=== PATIENT | female | born 1980 | race Caucasian/White ===

== ENCOUNTER 2023-12-13 13:37 | Outpatient (CLI) | payer BC, SELFPAY ==
--- NOTE | ~2023-12-13 | CT_ITS ---
Clinical Indication: Shortness of breath CT Scan of the Chest with Contrast: Technique: Contiguous sections were acquired throughout the chest after intravenous administration of 100 cc of Omnipaque 350. Dose reduction technique was used on this scan by utilizing automated expos ure control and iterative reconstruction technique. The dose-length product (DLP) was 233.50 mGy-cm. Findings: Probable enlarged subcarinal lymphadenopathy. Mildly prominent left hilar lymph nodes are present. Th ere is no filling defect in the pulmonary arterial tree to suggest pulmonary embolus. There is no treasure dence of aortic dissection or aneurysm. There is no evidence of pleural or pericardial effusion. There is patchy groundglass opacity and extensive tree-in-bud opacities, with extensive involvement o f the bilateral lower lobes and right middle lobe, and lesser involvement of the upper lobes. There i s a 4 mm right upper lobe pulmonary nodule (axial image 32). Images through the upper abdomen reveal no abnormalities. Impression: No evidence of pulmonary embolus, aortic dissection, or aortic aneurysm. Extensive groundglass and tree-in-bud pulmonary opacities, with lower lobe/basilar predominance, most compatible with atypical pneumonia and small airways infectious process. Subcarinal and hilar lymphadenopathy, presumably reactive/inflammatory. Reviewed, dictated and finalized at location M. Impression: No evidence of pulmonary embolus, aortic dissection, or aortic aneurysm. Extensive groundglass and tree-in-bud pulmonary opacities, with lower lobe/basi lar predominance, most compatible with atypical pneumonia and small airways inf ectious process. Subcarinal and hilar lymphadenopathy, presumably reactive/inflammatory.
== END 2023-12-13 13:38 ==
PROVIDERS: PCP Family Medicine; Visit Provider Family Medicine
DX: R06.02 Shortness of breath (principal); R06.2 Wheezing; R05.9 Cough, unspecified; R00.0 Tachycardia, unspecified
CPT/HCPCS: 71275; Q9967

== ENCOUNTER 2024-08-15 13:13 | Outpatient (CLI) | payer BC, SELFPAY ==
--- NOTE | ~2024-08-15 | CT_ITS ---
EXAMINATION: CT diagnostic chest wo con DATE: 08/15/2024 13:30 INDICATION: Pulmonary nodule TECHNIQUE: Computed tomography (CT) of the chest was performed without intravenous contrast. Addition al 3D reconstructions utilizing coronal maximum intensity projection (MIP) were performed. Automated exposure control and iterative reconstruction technique were employed. The dose-length product was 55 .40 mGy-cm. COMPARISON: 12/13/2023 FINDINGS: No interval change in a 4 mm right upper lobe pulmonary nodule. No new or enlarging pulmonary nodules , pneumonia, pulmonary edema or pleural effusion. Heart size is normal. No pericardial effusion. Thor acic aorta is normal in caliber. No pathologically enlarged thoracic lymphadenopathy. Visualized uppe r abdomen is unremarkable. Mild upper thoracic spondylosis. IMPRESSION: 1. Unchanged 4 mm right upper lobe pulmonary nodule. If the patient is low risk for lung cancer, no f ollow-up is needed. If the patient is high risk (i.e., history of smoking or asbestos or significant radiation exposure), optional follow-up chest CT could be considered at 12 months. Reviewed, dictated and finalized at location A. AL CRUELTY INVESTIGATOR IMPRESSION: 1. Unchanged 4 mm right upper lobe pulmonary nodule. If the patient is low risk for lung cancer, no follow-up is needed. If the patient is high risk (i.e., hi story of smoking or asbestos or significant radiation exposure), optional follo w-up chest CT could be considered at 12 months.
== END 2024-08-15 13:14 | disposition home or self-care (01) ==
PROVIDERS: PCP Family Medicine; Visit Provider Family Medicine
DX: R91.1 Solitary pulmonary nodule (principal)
CPT/HCPCS: 71250

== ENCOUNTER 2025-03-06 01:35 | Day surgery (SDC) | payer BC, SELFPAY ==
--- OUTSIDE RECORDS SUMMARY | 2023-12-21 08:00 | XMS_ITS ---
Author Organization [facility] dicine Address [address] [place] [address] Care Team Providers Care Cargo Surveyor Name Role Phone Dr. Cory Kessler Primary Care Provider [phone] Santino Melchor Unavailable [phone] REASON FOR VISIT possible cerumen impaction, balance on acct Vital Signs Temperature 97.9 degrees Fahrenheit 12/21/19 24 Blood pressure systolic 132 mm Hg 12/21/19 24 Blood pressure diastolic 68 mm Hg 024 Heart Rate 78 /min 12/21/2023 Respiratory Rate 16 /min 12/21/2023 Weight 140.06 lbs 12/21/2023 Oximetry 95 % 12/21/2023 Weight-kg 63.53 kg 12/21/2023 Encounters Encounter Location Date Provider Diagnosis [address] [address] 12/21/2023 Santino Melchor Cough, unspecified R05.9 ; Impacted cerumen, left ear H61.22 ; Unspecified injury of right foot, initial encounter S99.921A ; Other fatigue R53.83 ; Pneumonia, unspecified organism J18.9 ; Pain in right hip M25.551 ; Fever, unspecified R50.9 ; Pain in right elbow M25.521 ; Streptococcal pharyngitis J02.0 and Other specified cough R05.8 Assessments Encounter Date Diagnosis (ICD Code) Assessment Notes Treatment Notes Treatment Clinical Notes Section Notes 12/21/2023 Cough, unspecified (ICD-10 - R05.9) 12/21/2023 Impacted cerumen, left ear (ICD-10 - H61.22) 12/21/2023 Unspecified injury of right foot, initial encounter (ICD-10 - S99.921A) 12/21/2023 Other fatigue (ICD-10 - R53.83) 12/21/2023 Pneumonia, unspecified organism (ICD-10 - J18.9) 12/21/2023 Pain in right hip (ICD-10 - M25.551) 12/21/2023 Fever, unspecified (ICD-10 - R50.9) 12/21/2023 Pain in right elbow (ICD-10 - M25.521) 12/21/2023 Streptococcal pharyngitis (ICD-10 - J02.0) 12/21/2023 Other specified cough (ICD-10 - R05.8) Plan Of Treatment No Information Progress Notes * Loraine HEREDIADOB:1980 ( 44 yo F)Acc No.[id number]:12/21/2023 Patient: Loraine De Dios Provider: PATRICIA Fernandez :1980 A ge:43 Y S ex:Female Date:12/21/2023 Phone: Address:[address] [place] [address], [place], [phone] Pcp:Dr. Cory Kessler Subjective: * Chief Complaints: * P ossible cerumen impaction, balance on acct Objective: * Vitals: B P: 132/68 mm Hg, HR: 78 /min, RR: 16 /min, Temp: 97.9 F, Oxygen sat %: 95 %, Wt: 140.06 lbs, Wt-k.53 kg. Past Vitals:* 08/08/2022 BP: 134/84 mm Hg, HR: 82 /mi n, Oxygen sat %: 97 %, Wt: 153.99 lbs, Wt-k.85 kg * 03/31/2021 BP: 132/80 mm Hg, HR: 82 /mi n, Oxygen sat %: 99 %, Wt: 174.01 lbs, Wt-k.93 kg Assessment: * Assessment: 1. I mpacted cerumen, left ear - H61.22 S pecify :Src Diagnosis Name: Impacted cerumen of left ear 2 . S treptococcal pharyngitis - J02.0 S pecify :Src Diagnosis Name: Strep pharyngitis 3 . P neumonia, unspecified organism - J18.9 S pecify :Src Diagnosis Name: Pneumonia 4 . P ain in right elbow - M25.521 S pecify :Src Diagnosis Name: Right elbow pain 5 . P ain in right hip - M25.551 S pecify :Src Diagnosis Name: Right hip pain 6 . F ever, unspecified - R50.9 S pecify :Src Diagnosis Name: Fever 7 . O ther fatigue - R53.83 S pecify :Src Diagnosis Name: Fatigue 8 . U nspecified injury of right foot, initial encounter - S99.921A S pecify :Src Diagnosis Name: Right foot injury 9 . O ther specified cough - R05.8 S pecify :Src Diagnosis Name: Productive cough 1 0. C ough, unspecified - R05.9 S pecify :Src Diagnosis Name: Cough * Electronic signature of Morris Melchor on 03/06/2025 at 01:39 AM CDT Sign off status: Pending * Provider: PATRICIA Fernandez Date: 0 12/21/2023 Generated for Nikole gong/Mesfin/Elliotitting on: 0 03/06/2025 01:39 AM CDT
--- OUTSIDE RECORDS SUMMARY | 2024-05-31 04:00 | XMS_ITS ---
Author Organization [facility] dicine Address [address] [place] [address] Care Team Providers Care Program Evaluation Consultant Name Role Phone Dr. Cory Kessler Primary Care Provider [phone] Migration, Provider Unavailable Unavailable REASON FOR VISIT [facility] [place] Encounter Location Date Provider Diagnosis [facility] [address] [place] [address] 05/31/2024 Provider Migration Plan Of Treatment Medication Medication Name Sig Start Date Stop Date Notes predniSONE 20 MG Tablet 1 Oral every day ; Duration: 4 12/21/2023 12/24/2023 Cefprozil 500 MG Tablet 1 Oral two times a day; Duration: 08/09/2023 08/18/2023 Escitalopram Oxalate 20 MG Tablet 1 Oral every day; Duration: 03/06/2024 03/06/2024 Rx Refill Request,discontinuerea son:Refilled Lisinopril-hydroCHLOROth iazide 10-12.5 MG Tablet 1 Oral every day; Duration: 0 11/26/2020 03/30/2021 ,discontinuereason:D is continued Lexapro 20 MG Tablet 1 Oral every day; Duration: 03/31/2021 03/31/2021 Rx Refill Request,discontinuerea son:Refilled Cephalexin 500 MG Capsule 1 Oral two times a day; Duration: 07/25/2023 08/03/2023 Doxycycline Hyclate 100 MG Tablet 1 Oral two times a day; Duration: 11/29/2023 12/03/2023 Vitamin B-12 1000 MCG Tablet 4 Oral every day; Duration: 0 03/31/2021 08/07/2022 ,discontinuereason:D is continued Lexapro 10 MG Tablet 1 Oral every day; Duration: 11/26/2020 03/30/2021 ,discontinuereason:D is continued Avelox 400 MG Tablet 1 Oral every day; Duration: 12/13/2023 12/22/2023 *Reorder from [facility] for eRx and Interaction Alerts* Benzonatate 200 MG Capsule 1 Oral three times a day; Duration: 12/13/2023 12/22/2023 predniSONE 10 MG Tablet 3 Oral every day ; Duration: 12/13/2023 12/17/2023 Citalopram Hydrobromide 40 MG Tablet 1 Oral every day; Duration: 0 11/26/2020 11/26/2020 ,discontinuereason:D is continued Progress Notes * Loraine HEREDIADOB:1980 ( 44 yo F)Acc No.[id number]:05/31/2024 Patient: Malia Loraine BRITO :1980 A ge:43 Y S ex:Female Phone: Address:[id number] [place] [phone] * Refills Stop Benzonatate Capsule, 200 MG, Oral, 30, 1, three times a day, 10 Stop predniSONE Tablet, 10 MG, Oral, 15, 3, every day, 5 Stop Vitamin B-12 Tablet, 1000 MCG, Oral, 4, every day, 0 Stop Escitalopram Oxalate Tablet, 20 MG, Oral, 90, 1, every day, 90 Stop Escitalopram Oxalate Tablet, 20 MG, Oral, 30, 1, every day, 30 Stop Cefprozil Tablet, 500 MG, Oral, 20, 1, two times a day, 10 Stop predniSONE Tablet, 20 MG, Oral, 4, 1, every day, 4 Stop Lexapro Tablet, 20 MG, Oral, 90, 1, every day, 90 Stop Citalopram Hydrobromide Tablet, 40 MG, Oral, 1, every day, 0 Stop Lexapro Tablet, 20 MG, Oral, 90, 1, every day, 90 Stop Cephalexin Capsule, 500 MG, Oral, 20, 1, two times a day, 10 Stop Doxycycline Hyclate Tablet, 100 MG, Oral, 10, 1, two times a day, 5 Stop Escitalopram Oxalate Tablet, 20 MG, Oral, 90, 1, every day, 90 Stop Lisinopril-hydroCHLOROthiazide Tablet, 10-12.5 MG, Oral, 1, every day, 0 Stop Lexapro Tablet, 10 MG, Oral, 30, 1, every day, 30 Stop Avelox Tablet, 400 MG, Oral, 10, 1, every day, 10 Stop Escitalopram Oxalate Tablet, 20 MG, Oral, 90, 1, every day, 90 Subjective: * Chief Complaints: * E MR-Ceasar Objective: Past Vitals:* 12/21/2023 BP: 132/68 mm Hg, HR: 78 /mi n, Oxygen sat %: 95 %, Wt: 140.06 lbs, Wt-k.53 kg * 08/08/2022 BP: 134/84 mm Hg, HR: 82 /mi n, Oxygen sat %: 97 %, Wt: 153.99 lbs, Wt-k.85 kg * * Date:
--- OUTSIDE RECORDS SUMMARY | 2024-06-01 04:00 | XMS_ITS ---
Author Organization [facility] Address [address] [place] [address] Care Team Providers Care Supervisor Component Assembler Name Role Phone Dr. Cory Kessler Primary Care Provider [phone] Migration, Provider Unavailable Unavailable Allergies Allergen (clinical drug ingredient) Drug/Non Drug Allergy documented on EMR Reaction Allergy Type Onset Date Status Substance with penicillin structure and antibacterial mechanism of action (substance) Penicillins Unknown Drug Allergy 03/30/2021 Active REASON FOR VISIT EMR-Ceasar Medications Medication SIG (Take, Route, Frequency, Duration) Notes Start Date End Date Status Vitamin D3 50 MCG (1999 UT) Tablet 1 Oral every day; Duration: 0 03/31/2021 Active Benzonatate 100 MG Capsule 1 Oral three times a day; Duration: 0 11/28/2023 Active Escitalopram Oxalate 20 MG Tablet 1 Oral every day; Duration: 90 06/02/2024 2024 Active Multivitamin oral; Duration: 0 *Pick strength-form from [facility] for eRX* 03/31/2021 Active Social History Social History Additional Details Category Social Info Options Details Migrated Social History Migrated Social History Tobacco history:Former smoker ,notes : >10 Yrs ago 1/2ppd x 10-12 yrs Encounters Encounter Location Date Provider Diagnosis [facility] [address] [place] [address] 06/01/2024 Provider Migration Plan Of Treatment No Information Progress Notes * Loraine HEREDIADOB:1980 ( 44 yo F)Acc No.[id number]:06/01/2024 Patient: Malia Loraine BRITO :1980 A ge:43 Y S ex:Female Phone: Address:[address], [place], [address] Subjective: * Chief Complaints: * E MR-Ceasar * Surgical History: ([id number]) CONTRACEPT IUD ,notes : 07/2019 * Social History: M igrated Social History: M igrated Social History: Tobacco history:Former smoker ,notes : >10 Yrs ago 1/2ppd x 10-12 yrs. * Medications: T akingEscitalopram Oxalate 20 MG Tablet 1 Oral every day , stop date 2024Multivitamin oral , Notes to Pharmacist: *Pick strength-form from [employer] for eRX*Benzonatate 100 MG Capsule 1 Oral three times a day Vitamin D3 50 MCG (2000 UT) Tablet 1 Oral every day Taking Escitalopram Oxalate 20 MG Tablet 1 Oral every day , stop date 2024Taking Multivitamin oral , Notes to Pharmacist: *Pick strength-form from [employer] for eRX*Taking Benzonatate 100 MG Capsule 1 Oral three times a day Taking Vitamin D3 50 MCG (2000 UT) Tablet 1 Oral every day * Allergies: P enicillins: Allergy - Onset Date 03/30/2021 Objective: Past Vitals:* 12/21/2023 BP: 132/68 mm Hg, HR: 78 /mi n, Oxygen sat %: 95 %, Wt: 140.06 lbs, Wt-k.53 kg * 08/08/2022 BP: 134/84 mm Hg, HR: 82 /mi n, Oxygen sat %: 97 %, Wt: 153.99 lbs, Wt-k.85 kg * * Date:
[2025-02-27 10:39] VITALS: BMI 24.7
--- OUTSIDE RECORDS SUMMARY | 2025-03-06 01:39 | XMS_ITS | Clinical Summary ---
Author Organization [facility] Address [address] [place] [address] Care Team Providers Care Fraud Prevention Analyst Name Role Phone Aura Garcia MD Primary Care Provider Allergies Active Allergy Reactions Criticality Noted Date Comments Penicillins Rash Medium 08/09/2011 As baby Medications escitalopram (LEXAPRO) 20 mg tablet 02/16/2021 Active Active Problems Problem Noted Date Diagnosed Date Anxiety disorder 08/09/2011 Hyperlipidemia 08/09/2011 Medical History Medical History Date Comments Anxiety Hypercholesteremia Hypertension Family History Medical History Relation Name Comments Heart disease Father Hypertension Father Arthritis Mother Cancer Mother Heart disease Mother Hypertension Mother Lung disease Mother Stroke Mother Relation Name Status Comments Father Mother Social History Tobacco Use Types Packs/Day Years Used Date Smoking Tobacco: Never Personal Safety Answer Date Recorded Getting School Help Needed Not on file 08/30 Comments Unknown Sex and Gender Information Value Date Recorded Sex Assigned at Not on file Legal Sex Female 1:18 PM CDT Gender Identity Not on file Sexual Orientation Not on file Obstetrics History Last Filed Vital Signs Vital Sign Reading Time Taken Comments Blood Pressure - - Pulse - - Temperature - - Respiratory Rate - - Oxygen Saturation - - Inhaled Oxygen Concentration - - Weight 66.7 kg (147 lb) 02/24/2022 11:52 AM CDT Height 170.2 cm (5' 7) 02/24/2022 11:52 AM CDT Body Mass Index 23.02 02/24/2022 11:52 AM CDT Plan of Treatment Health Maintenance Due Date Last Done Comments Breast Cancer Screening-Mammogram 1980 Cervical Cancer Screening 1980 Colon Cancer Screening-Colonoscopy 1980 Depression Screening 1978 Hepatitis C Screening 1978 DTaP/Tdap/Td Vaccine (1 - Tdap) 1989 Hepatitis B Screening 1996 Regular Well Visit/Exam 18-64 1996 Covid-19 Vaccine ( season) 2024 09/10/2020, 08/13/2020 Influenza Vaccine (#1) 2025 , 04/08/2019, 03/25/2018, Additional history exists HPV Vaccines Aged Out No longer eligi ble based on patient's age to complete this topic Pneumococcal vaccine <65 Aged Out No longer eligible based on patient's age to complete this topic [place] Care Teams Fraud Prevention Analyst Relationship Specialty Start Date End Date Aura Garcia MD [address] [place], [place] [id number] PCP - General Family Medicine 07/12/20
--- OUTSIDE RECORDS SUMMARY | 2025-03-06 01:39 | XMS_ITS | Encounter Summary ---
Author Organization [facility] Address Pending sale to [facility] [place] [address] Care Team Providers Care Terrazzo Grinder Name Role Phone Cory Kessler MD Primary Care Provider + [phone] Encounter Details Date Type Department Care Team (Late st Contact Info) Description 05/22/2024 Polyvore Message Enc [facility] ACTION REQUIRED Social History Tobacco Use Types Packs/Day Years Used Date Smoking Tobacco: Never Smokeless Tobacco: Never Alcohol Use Standard Drinks/Week Comments Yes 0 (1 standard drink = 0.6 oz pur e alcohol) occasionally AUDIT-C Answer Date Recorded Frequency of Alcohol Consumption Never 04/19/2019 Average Number of Drinks Not on file 019 Frequency of Binge Drinking Not on file 04/01 PHQ-2 Answer Date Recorded PHQ-2 Score - If the patient scores above 3, please move on to questions 3-9 0 04/27/2021 Comments No Sex and Gender Information Value Date Recorded Sex Assigned at Female 04/27/2021 8:38 AM CDT Legal Sex Female 8:25 PM CDT Gender Identity Female 04/27/2021 8:38 AM CDT Sexual Orientation Straight 04/27/2021 8: 38 AM CDT documented as of this encounter Plan of Treatment Not on file documented as of this encounter Visit Diagnoses Not on filedocumented in this encounter Additional Health Concerns Assessment Noted Time PHQ-9 Depression Total Score: 0 04/27/20 21 8:38 AM CDT documented as of this encounter Care Teams Terrazzo Grinder Relationship Specialty Start Date End Date Cory Kessler MD [address] [place] [address] PCP - General PEDIATRICS 03/21/19 documented as of this encounter
--- OUTSIDE RECORDS SUMMARY | 2025-03-06 01:39 | XMS_ITS | Clinical Summary ---
Author Organization [facility] Address [address] [place] [address] Care Team Providers Care Basketball Commentator Name Role Phone Cory Kessler MD Primary Care Provider + [phone] Allergies Active Allergy Reactions Criticality Noted Date Comments Penicillins Rash Low 08/09/2011 As baby Medications Cholecalciferol (VITAMIN D3) 50 MCG (1999) Tab Take 1 tablet by mouth daily. Active escitalopram 20 MG tablet 02/16/2021 Active meloxicam 15 MG tabletIndication s:Plantar fasciitis Take 1 tablet (15 mg total) by mouth daily. 30 tablet 04/27/2021 Active gatifloxacin 0.5 % ophthalmic solution 05/28/2021 Active tobramycin-dexam ethasone ophthalmic solution 06/03/2021 Active Active Problems Problem Noted Date Diagnosed Date Anxiety disorder 08/09/2011 Hyperlipidemia 08/09/2011 Immunizations Immunization Administration Dates Next Due Influenza (Generic) 06/03/2013 Influenza Adult (Generic) 04/12/2020,,03/21/2017,04/12/2016,2014,05/25/2014,06/03/2013 Family History Medical History Relation Comments Heart Disease Father Cancer Mother Heart Disease Mother Hypertension Mother Stroke Mother Breast Cancer Neg Hx Relation Status Comments Father Maternal Grandfather Maternal Grandmother Mother Paternal Grandfather Paternal Grandmother Social History Tobacco Use Types Packs/Day Years Used Date Smoking Tobacco: Never Smokeless Tobacco: Never Tobacco Cessation:Counseling Given: No Alcohol Use Standard Drinks/Week Comments Yes 0 [...] Orientation Straight 04/27/2021 8: 38 AM CDT Last Filed Vital Signs Vital Sign Reading Time Taken Comments Blood Pressure 120/70 06/13/2021 4:45 PM FAX MACHINE OPERATOR Pulse 84 06/13/2021 4:45 PM FAX MACHINE OPERATOR Temperature 36.3 C (97.3 F) 05/28/2020 8:57 AM FAX MACHINE OPERATOR Respiratory Rate 16 05/28/2020 8:57 AM FAX MACHINE OPERATOR Oxygen Saturation 99% 05/11/2021 4:51 PM FAX MACHINE OPERATOR Inhaled Oxygen Concentration - - Weight 74.8 kg (165 lb) 06/13/2021 4:45 PM FAX MACHINE OPERATOR Height 168.7 cm (5' 6.4) 06/13/2021 4:45 PM FAX MACHINE OPERATOR Body Mass Index 26.31 06/13/2021 4:45 PM FAX MACHINE OPERATOR Plan of Treatment Health Maintenance Due Date Last Done Comments Cervical Cancer Screening Pap Smear (Age 30 to 64) Every 3 Years 1978 Colorectal Cancer Screening Colonoscopy (10 Years) 1978 Annual Physical 1981 Hepatitis C 1996 DTaP, Tdap and Td Vaccines (1 - Tdap) 1997 Hepatitis B Vaccines (1 of 3 - 19+ 3-dose series) 1997 Cervical Cancer Screening Pap with HPV Testing (Age 30 to 64) Every 5 Years 2008 Cervical Cancer Screening with HPV 2008 COVID-19 Vaccine ( season) 2025 Mammogram Screening 09/12/2026 09/12/2024, 08/31/2023, 05/10/2022, Additional history exists Meningococcal B Vaccine Aged Out No l onger eligible based on patient's age to complete this topic Meningococcal Vaccine Aged Out No dawna darlyn eligible based on patient's age to complete this topic Pneumococcal Vaccine: Pediatrics (0 to 5 Years) and At-Risk Patients (6 to 49 Years) Aged Out No longer eligible based on patient's age to complete this topic RSV Immunizations Under 20 Months Aged Out No longer eligible based on patient's age to complete this topic Procedures Procedure Name Priority Date/Time Associated Diagnosis Comments MG SCREENING W NANDO DAVID DIGI Routine 09/12/2024 9:59 AM CDT Encounter for screening mammogram for malignant neoplasm of breast from Last 3 Months or Most Recently Relevant to Health Maintenance Results * MG SCREENING W NANDO DAVID DIGI (09/12/2024 9:59 AM CDT) Anatomical Region Laterality Modality Breast Bilateral Mammography 09/12/2024 12:1 1 PM CDT Impressions 09/12/2024 12:28 PM CDT ===== IMPRESSION: ===== 1. Stable mammographic appearance with no new findings to suggest malignancy in either breast. Assessment: ACR BI-RADS 2 - BENIGN FINDING(S) Recommendation: 1:Routine Screening Bilateral Comments: Ordered By: OMER MOSLEY Interpreted By: Fiorella Montelogno, 09/12/2024 12:11 PM Narrative 09/12/2024 12:28 PM CDT [facility] [address] [place] [address] EXAMINATION: Digital bilateral screening mammogram with 3-D tomosynthesis EXAM DATE/TIME: 09/12/2024 7:58 AM REASON FOR EXAM: Routine screening COMPARISON: 05/10/2022. 08/31/2023 Technique: Digital screening mammography of both breasts was performed in addition to 3-D Tomosynthesis technique. This study was read with the assistance of a computer-aided detection system. Tissue density: The breasts are heterogeneously dense, which may obscure small masses. Findings: There is no new focal asymmetry, dominant mass lesion, area of skin thickening, or cluster of suspicious appearing calcifications in either breast to suggest malignancy. us Omer Mosley MD MAMMO Final Resu lt from Last 3 Months or Most Recently Relevant to Health Maintenance [place] [address] [place] [address] Care Teams Basketball Commentator Relationship Specialty Start Date End Date Cory Kessler MD [address] [place] [address] PCP - General PEDIATRICS 03/21/19
--- OUTSIDE RECORDS SUMMARY | 2025-03-06 01:39 | XMS_ITS | Patient Health Record ---
Author Organization [facility] dicine Address [address] [place] [id number] Care Team Providers Care Casing Fluid Tender Name Role Phone Dr. Cory Kessler Primary Care Provider [phone] Dr. Aura Garcia Unavailable [phone] Aura Farrell Unavailable [phone] Migration, Provider Unavailable Unavailable Allergies Allergen (clinical drug ingredient) Drug/Non Drug Allergy documented on EMR Reaction Allergy Type Onset Date Status Substance with penicillin structure and antibacterial mechanism of action (substance) Penicillins Unknown Drug Allergy 03/30/2021 Active Results Component Value Reference Range Flag Notes Iron Level and TIBC Reviewed date:01/29/2025 08:28:32 AM Interpretation: Performing Lab: Notes/Report: LOCATION: [facility] Performed by: [address] [address] Hybrid Corn Breeder: Sergio Sung DO Report Forwarded By: [address] [place] [id number] Iron Lvl 99 50-212 mcg/dL LOCATION LOCATION: [facility] Transferrin 280 203-362 mg/dL LOCATION LOCATION: [facility] TIBC 392 250-420 mcg/dL LOCATION LOCATION: [facility] Iron Sat 25 20-55 % LOCATION LOCATION: [facility] Vitamin B12 Reviewed date:01/29/2025 08:28:32 AM Interpretation: Performing Lab: Notes/Report: LOCATION: [facility] Performed by: [address] [address] Hybrid Corn Breeder: Sergio Sung DO Report Forwarded By: [address] [place] [id number] Vitamin B12 Lvl 598 180-914 pg/mL Vitamin B12 Interpretation: Normal Range: 180-914 pg/mL Indeterminate: 140-180 pg/mL Deficient: <140 pg/mL LOCATION LOCATION: [facility] Uric Acid Reviewed date:01/29/2025 08:28:32 AM Interpretation: Performing Lab: Notes/Report: LOCATION: [facility] Test Performed by: [place] [address] Hybrid Corn Breeder: Sergio Sung DO Report Forwarded By: [address] [address] Uric Acid 5.8 2.3-6.6 mg/dL LOCATION LOCATION: [facility] Thyroid Stimulating Hormone Reviewed date:01/29/2025 08:28:32 AM Interpretation: Performing Lab: Notes/Report: LOCATION: [facility] Test Performed by: [place] [address] Hybrid Corn Breeder: Sergio Sung DO Report Forwarded By: [address] [place] [address] TSH 2.85 0.45-5.33 mcIU/mL LOCATION LOCATION: [facility] Lipid Panel {Chol, Trig, HDL , LDL} Reviewed date:01/29/2025 08:28:32 AM Interpretation: Performing Lab: Notes/Report: LOCATION: [facility] Test Performed by: [place] [id number] Hybrid Corn Breeder: Sergio Sung DO Report Forwarded By: [address] [place] [id number] Cholesterol Total 294 <=199 mg/dL H LOCATION LOCATION: [facility] Triglycerides 90 0-149 mg/dL Triglyceride Reference Ranges: <150 mg/dL Normal 150 - 199 mg/dL Borderline High 200 - 499 mg/dL High >=500 mg/dL Very High LOCATION LOCATION: [facility] LDL 220 <=100 mg/dL H LDL Optimal: <100 Near or above optimal: 100-129 Borderline high: 130-159 High: 160-189 Very high: >=190 Coronary heart disease risk factors should be considered when determining LDL goals. Please refer to ATPIII guidelines for further information. If LDL is not calculated, please call the lab to add on the direct LDL methodology, if desired. LOCATION LOCATION: [facility] HDL 56 23-92 mg/dL LOCATION LOCATION: [facility] Non HDL Cholesterol 238 <=130 mg/dL H LOCATION LOCATION: [facility] Chol/HDL 5 0-5 LOCATION LOCATION: [facility] Coronary Risk 19 Coronary Risk Factor - Male Dangerous Risk: <7 % High Risk: 7-15 % Average Risk: 15-25 % Below Average Risk: 25-37 % Coronary Risk Factor - Female Dangerous Risk: <12 % High Risk: 12-18 % Average Risk: 18-27 % Below Average Risk: 27-40 % LOCATION LOCATION: [facility] Comprehensive Metabolic Pane l Reviewed date:01/29/2025 08:28:32 AM Interpretation: Performing Lab: Notes/Report: LOCATION: [facility] Test Performed by: [address] [address] Hybrid Corn Breeder: Sergio Sung DO Report Forwarded By: [address] [address] Glucose Lvl 111 74-109 mg/dL H ADA risk stratification for diabetes <100 mg/dL = Normal 100-125 mg/dL = Increased risk for future diabetes >=126 mg/dL = Diabetes, if on more than one testing occasion LOCATION LOCATION: [facility] BUN 16 7-25 mg/dL LOCATION LOCATION: [facility] Creatinine Lvl 0.64 0.60-1.20 mg/dL LOCATION LOCATION: [facility] eGFR CKD-EPI >90 >=90 mL/min/1.73 m2 The CKD-EPI equation is validated in individuals 18 years of age and older. It is less accurate in patients with extremes of muscle mass, restriction of dietary protein, ingestion of creatine, extra-renal metabolism of creatinine, or treatment with medications that affect renal tubular creatinine secretion. GFR Categories in Chronic Kidney Disease (CKD) GFR GFR (mL/min/1.73 Category: square meters): Interpretation: G1 90 or greater Normal or high* G2 60-89 Mild decrease* G3a 45-59 Mild to moderate decrease G3b 30-44 Moderate to severe decrease G4 15-29 Severe decrease G5 14 or less Kidney failure *In the absence of evidence of kidney damage, neither GFR category G1 nor G2 fulfill the criteria for CKD (Kidney Int Suppl 2013;3:1-150) LOCATION LOCATION: [facility] Calcium Lvl 9.3 8.6-10.3 mg/dL LOCATION LOCATION: [facility] Sodium Lvl 138 136-145 mmol/L LOCATION LOCATION: [facility] Potassium Lvl 4.8 3.5-5.1 mmol/L LOCATION LOCATION: [facility] Chloride Lvl 102 98-107 mmol/L LOCATION LOCATION: [facility] CO2 30 21-31 mmol/L LOCATION LOCATION: [facility] Anion Gap 6.3 <=16.0 mmol/L LOCATION LOCATION: [facility] Alk Phos 54 34-104 unit/L LOCATION LOCATION: [facility] Bilirubin Total 0.4 0.3-1.0 mg/dL LOCATION LOCATION: [facility] Albumin Lvl 4.7 3.5-5.2 g/dL LOCATION LOCATION: [facility] Protein Total 7.7 6.4-8.9 g/dL LOCATION LOCATION: [facility] Albumin/Globulin Ratio 1.5 1.1-2.5 LOCATION LOCATION: [facility] ALT 14 7-52 unit/L LOCATION LOCATION: [facility] AST 16 13-39 unit/L LOCATION LOCATION: [facility] CBC w Auto Diff Reviewed date:01/29/2025 08:28:32 AM Interpretation: Performing Lab: Notes/Report: LOCATION: [facility] Test Performed by: [place] [address] Hybrid Corn Breeder: Sergio Sung DO Report Forwarded By: [address] [address] WBC 5.0 4.0-11.7 K/mcL LOCATION LOCATION: [facility] RBC 4.79 3.80-5.41 x10*6/mcL LOCATION LOCATION: [facility] Hgb 14.0 11.3-15.2 g/dL LOCATION LOCATION: [facility] Hct 41.5 33.2-45.3 % LOCATION LOCATION: [facility] MCV 86.5 79.5-98.1 fL LOCATION LOCATION: [facility] MCH 29.2 27.0-34.2 pg LOCATION LOCATION: [facility] MCHC 33.8 31.8-35.3 g/dL LOCATION LOCATION: [facility] RDW 12.8 12.0-16.4 % LOCATION LOCATION: [facility] Platelets 343 149-393 K/mcL LOCATION LOCATION: [facility] MPV 9.2 7.0-11.0 fL LOCATION LOCATION: [facility] Neutro Auto 56.0 45.3-79.0 % LOCATION LOCATION: [facility] Lymph Auto 34.2 11.8-45.9 % LOCATION LOCATION: [facility] [place] Auto 6.9 4.4-12.0 % LOCATION LOCATION: [facility] Eosinophil Auto 2.1 0.0-6.3 % LOCATION LOCATION: [facility] Basophil Auto 0.8 0.2-1.6 % LOCATION LOCATION: [facility] Neutro Absolute 2.8 2.4-8.4 x10*3/mcL LOCATION LOCATION: [facility] Lymph Absolute 1.7 0.8-3.7 x10*3/mcL LOCATION LOCATION: [facility] [place] Absolute 0.3 0.3-1.1 x10*3/mcL LOCATION LOCATION: [facility] Eos Absolute 0.1 0.0-0.5 x10*3/mcL LOCATION LOCATION: [facility] T4 Free Reviewed date:01/29/2025 08:28:32 AM Interpretation: Performing Lab: Notes/Report: LOCATION: [facility] Test Performed by: [place] [address] Hybrid Corn Breeder: Sergio Sung DO Report Forwarded By: [address] [place] [address] T4 Free 0.83 0.61-1.12 ng/dL LOCATION LOCATION: [facility] Vitamin D 25 Hydroxy Reviewed date:01/29/2025 08:28:32 AM Interpretation: Performing Lab: Notes/Report: LOCATION: [facility] Test Performed by: [place] [address] Hybrid Corn Breeder: Sergio Sung DO Report Forwarded By: [address] [place] [address] Vitamin D 25 OH 33 30-100 ng/mL Vitamin D25 Interpretation: Deficient: <= 20 ng/mL Insufficient: 21-29 ng/mL Sufficient: 30-100 ng/mL Upper Safety Limit: >100 ng/mL LOCATION LOCATION: [facility] Hemoglobin A1c {Glycosylated } Reviewed date:01/29/2025 08:28:32 AM Interpretation: Performing Lab: Notes/Report: LOCATION: [facility] Test Performed by: [place] [address] Hybrid Corn Breeder: Sergio Ana Lilia, DO Report Forwarded By: [address] [address] Hemoglobin A1c 6.1 <=6.4 % Hemoglobin A1C < 5.7% = Normal 5.7-6.4% = Increased risk for future diabetes >=6.5% = Diabetes LOCATION LOCATION: [facility] eAvg Glucose 128 <=117 mg/dL H eAG Reference Range <117 mg/dL = Normal 117-137 mg/dL = Increased Risk For Future Diabetes >137 mg/dL = Diabetes LOCATION LOCATION: [facility] Charge Venipuncture Reviewed date:01/29/2025 08:28:32 AM Interpretation: Performing Lab: Notes/Report: LOCATION: [facility] Report Forwarded By: [id number] [address] [address] Scan : Chest without cont rast Reviewed date:08/27/2024 04:29:06 PM Interpretation: Performing Lab: Notes/Report: Reason For Referral Reason Summer 2024 - needs initial screening colonoscopy. Diagnosis 1 Colon cancer screeni (Z12.11) Referral Organization [facility] Referring Provider First Name Dr. 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 >Faxed to [facility], P [phone], F [phone], Saima Christensen 09/23/2024 01:03:33 PM CDT >please check on status of referral, Dilma Alvarenga 11/18/2024 10:37:19 AM CDT >LVM with office about status of referral, Dilma Alvarenga 11/18/2024 11:06:00 AM CDT >Pt scheduled for 01/23/25 Referral Priority Routine Referral Appointment Date 01/23/2025 Medications Medication SIG (Take, Route, Frequency, Duration) Notes Start Date End Date Status Multivitamin oral; Duration: 0 *Pick strength-form from Locationary for eRX* 03/31/2021 Active Meloxicam 7.5 MG Tablet 1 tablet with food Orally Once a day; Duration: 30 days 12/31/2024 Active Benzonatate 100 MG Capsule 1 Oral three times a day; Duration: 0 11/28/2023 Not-Taking Vitamin D3 50 MCG (1999 [place]) Tablet 1 Oral every day; Duration: 0 03/31/2021 Active Escitalopram Oxalate 20 MG Tablet 1 tablet Orally Once a day; Duration: 90 days Active Immunizations Vaccine Route Administration Date Status Comme nts Tdap IM Intramuscular 08/08/2022 Administered Influenza 6mo+ IM Intramuscular 07/30/2024 Administered Social History Social History Additional Details Category Social Info Options Details Migrated Social History Migrated Social History Tobacco history:Former smoker ,notes : >10 Yrs ago 1/2ppd x 10-12 yrs Problems Problem Type SNOMED Code ICD Code Onset Dates Problem Status W/U Status Risk Notes Problem Thyroid function tests abnormal (306746719) Abnormal results of thyroid function studies (R94.6) 02/12/20 18 Problem resolved confirmed Problem Mixed hyperlipidemia (296192523) Mixed hyperlipidemia (272.2) 06/23/20 16 Problem resolved confirmed Problem Tachycardia (8253642) Tachycardia, unspecified (R00.0) 12/13/19 24 Active confirmed Problem Pulmonary nodule (564907935) Pulmonary nodule (R91.1) Active confirmed Problem Carpal tunnel syndrome (21231910) Carpal tunnel syndrome, unspecified upper limb (G56.00) 11/27/19 21 Active confirmed Problem Generalized anxiety disorder (30838493) Generalized anxiety disorder (F41.1) 06/23/20 16 Active confirmed Problem Impacted cerumen (99735148) Impacted cerumen (380.4) 06/23/20 16 Problem resolved confirmed Problem Hyperglycemia (44434111) Hyperglycemia, unspecified (R73.9) 03/31/20 21 Active confirmed Problem Essential hypertension (57826819) Essential (primary) hypertension (I10) 03/31/20 21 Active confirmed Problem Anxiety disorder (283341478) Anxiety disorder, unspecified (F41.9) 06/23/20 16 Active confirmed Problem Hyperlipidemia (81328435) Hyperlipidemia, unspecified (E78.5) 11/27/19 21 Active confirmed Problem Vitamin B deficiency (92957229) Deficiency of other specified B group vitamins (E53.8) 03/31/20 21 Active confirmed Problem Hyperlipidemia (07148759) Other and unspecified hyperlipidemia (272.4) 06/28/20 17 Problem resolved confirmed Vital Signs Heart Rate 77 /min 12/31/2024 Temperature 98.7 degrees Fahrenheit 12/31/2024 Respiratory Rate 18 /min 07/30/2024 Height-cm 170.18 cm 12/31/2024 Oximetry 98 % 12/31/2024 Blood pressure diastolic 76 mm Hg 12/31/2024 Weight-kg 76.11 kg 12/31/2024 Height 67.00 in 12/31/2024 Blood pressure systolic 122 mm Hg 12/31/2024 Weight 167.8 lbs 12/31/2024 BMI 26.28 kg/m2 12/31/2024 Encounters Encounter Location Date Provider Diagnosis [address] [phone] 07/30/2024 Dr. Aura Garcia Anxiety disorder, unspecified F41.9 ; Encounter for general adult medical examination without abnormal findings Z00.00 ; Encounter for immunization Z23 ; Hyperlipidemia, unspecified E78.5 ; Hyperglycemia, unspecified R73.9 ; Pulmonary nodule R91.1 and Screening for colon cancer Z12.[address] [address] 12/31/2024 Aura Farrell Pain, joint, knee, right M25.561 ; Pain, joint, knee, left M25.562 and Finger mass, left R22.[address] [address] 05/31/2024 Provider Migration [address] [address] 06/01/2024 Provider Migration Assessments Encounter Date Diagnosis (ICD Code) Assessment Notes Treatment Notes Treatment Clinical Notes Section Notes 07/30/2024 Anxiety disorder, unspecified (ICD-10 - F41.9) 07/30/2024 Encounter for general adult medical examination without abnormal findings (ICD-10 - Z00.00) 12/31/2024 Pain, joint, knee, left (ICD-10 - M25.562) 12/31/2024 Pain, joint, knee, right (ICD-10 - M25.561) - Bilateral knee pain (possible osteoarthritis, rheumatoid arthritis, or patellofemoral pain syndrome)- Trial of Meloxicam (7.5mg) 1 tablet daily with food for pain and inflammation. - Prescription for Voltaren (diclofenac) gel to apply to affected area 3-4 times daily as needed. - X-ray orders for both knees provided; patient may obtain imaging at her discretion.- Contingency plan: Discussed that if pain worsens, or if swelling, erythema, warmth, or discoloration develops, patient is advised to return for in-person evaluation. - If current management is insufficient or if patient desires further workup, she may call to request X-rays and/or lab work for RA markers without an additional visit. (Labs would include: RF, AntiCCP antibodies, ESR, CRP and CBC).- Patient was informed that she can call the clinic to request these orders if needed, and to return for evaluation if new or worsening symptoms develop.- Physical therapy and swimming discussed as options for pain relief/rehab; declined PT at this time. - Advised to avoid concurrent use of other NSAIDs while on Meloxicam.- Risks and side effects: Discussed risk of GI irritation/bleedin g with Meloxicam; advised to take with food. Advised to monitor for signs of bleeding (blood in stool, urine, or hemoptysis) and to stop medication and notify clinic if these occur. Advised not to take other NSAIDs (ibuprofen, naproxen, Advil, Aleve) while on meloxicam. 12/31/2024 Finger mass, left (ICD-10 - R22.32) - Possible joint space outpouching related to osteoarthritis vs. other cause/etiology (mucus cyst).- X-ray order for left hand provided; patient may obtain imaging at her discretion. - Advised to monitor for growth, increased pain, stiffness, or swelling and to notify clinic if these occur. 07/30/2024 Encounter for immunization (ICD-10 - Z23) 07/30/2024 Hyperlipidemia, unspecified (ICD-10 - E78.5) 07/30/2024 Hyperglycemia, unspecified (ICD-10 - R73.9) 07/30/2024 Pulmonary nodule (ICD-10 - R91.1) 07/30/2024 Screening for colon cancer (ICD-10 - Z12.11) 07/30/2024 Other [facility] iniitial colon [facility] chest wthout contrast. Previous Pneumonia and Lung Nodule - Previous CT scan showed no blood clot, but small infiltrates consistent with pneumonia and a 4 mm right upper lobe nodule. Lymph nodes likely reactive. Improvement with treatment suggests infectious etiology. - Recommend follow-up CT scan without contrast to monitor the right upper lobe nodule and ensure resolution of previous findings. Patient consented to proceed with the follow-up scan. Prediabetes - A1C has increased slightly over the years, currently at 5.9. History of gestational diabetes. - Monitor A1C and cholesterol levels. Suggest lifestyle modifications including diet and exercise. Consider re-evaluation in three months. - Specific recommendations: Reduce intake of refined sugars and carbohydrates, increase fiber intake, and maintain regular physical activity. High Cholesterol - Bad cholesterol increased to 220, total cholesterol at 294. Previous levels were lower. - Suggest dietary and exercise modifications. Re-evaluate cholesterol levels in three months. Discussed potential for medication if lifestyle changes are insufficient. Arjay score is low less than 2%. - Specific recommendations: Reduce intake of saturated fats and trans fats, increase consumption of omega-3 fatty acids, and incorporate more fruits and vegetables into the diet. Family History of Lung Cancer - Family history of lung cancer noted, increasing concern for lung nodule follow-up. - Follow-up CT scan as part of monitoring plan for lung nodule. Colon Cancer Screening - Due for colon cancer screening at age 43. - Referral for colonoscopy to [facility].. Discussed option of Cologuard test but recommended colonoscopy as baseline. Flu Vaccination - Flu vaccination recommended due to recent exposure. - Administer flu shot during the visit. Appointments - Follow-up CT scan at [facility], scheduled soon. - Referral for colonoscopy, first available or summer Plan Of Treatment Pending Test Test Name Order Date X ray : Hand, left 12/31/2024 X ray : Knee, left 2 views 12/31/2024 X ray : Knee, right 2 views 12/31/2024 CT Scan : Chest without contrast 025 Future Test Test Name Order Date Hemoglobin A1c 09/30/2024 Lipid Panel 09/30/2024 Comp. Metabolic Panel (14) 09/30/2024 Insurance Providers Payer Name Payer Address Payer Phone Subscriber Number Group Number Insured Name Patient Relationship to Insured Coverage Start Date Coverage End Date [employer]IL [address] [place] [address] [id number] Loraine Heredia Self - patient is the insured Medical (General) History Medical History History ICD Code Abnormal results of thyroid function logan dies (resolved 04/12/2018) Mixed hyperlipidemia (resolved 8) Other and unspecified hyperlipidemia (re solved ) Impacted cerumen (resolved 08/22/2016) Deficiency of other specified B group vi tamins E53.8 Hyperlipidemia, unspecified E78.5 Generalized anxiety disorder F41.1 Anxiety disorder, unspecified F41.9 Carpal tunnel syndrome, unspecified uppe r limb G56.00 Essential (primary) hypertension I10 Tachycardia, unspecified R00.0 Hyperglycemia, unspecified R73.9 Surgical History Surgery Date(Month/Year) (S4989) CONTRACEPT IUD ,notes : 07/2019
--- OUTSIDE RECORDS SUMMARY | 2025-03-06 01:39 | XMS_ITS | Clinical Summary ---
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 Gender Identity Not on file Sexual Orientation Not on file Plan of Treatment Health Maintenance Due Date Last Done Comments DTAP/TDAP/TD VACCINES (1 - Tdap) 1997 HEPATITIS B VACCINES (1 of 3 - 19+ 3-dose series) 1997 HPV/Cotest (21-29) 08/31/1999 CERVICAL CANCER SCREENING 2008 HPV/Cotest (30-65) 2008 PAP SMEAR 2008 BREAST CANCER SCREENING 2018 COLORECTAL SCREENING 08/31/2023 Colorectal Cancer Screening 08/31/2023 FIT-DNA Q 3 years 08/31/2023 FIT/FOBT Q 1 year 08/31/2023 Flex Sig/CT Colonography Q 5 years 08/31/2023 INFLUENZA VACCINE (#1) 2025 04/12/2020 HPV VACCINES Aged Out No longer eligi ble based on patient's age to complete this topic Insurance BCBS BLUE ACCESS/TRUE BLUE PPO [facility]
--- NOTE | 2025-03-06 10:34 | P.PNAN_ITS ---
Anes - Initial Pre Proc Eval Procedure: Operation Date: 03/06/25 11:30 Proposed Procedures p Screening Colonoscopy - Gabo Clements MD Date/Time: 03/06/25 10:34 Surgeon: Gabo Clements MD Pre Op Diagnosis: Screening Patient Data Age: 44 Gender: F Height: 1.7 m Weight: 71.8 kg Allergies Allergy/AdvReac Type Severity Reaction Status Date / Time Penicillins Allergy Mild unsure - Verified 03/06/25 10:35 had as a baby Home Medications ?Medication ?Instructions ?Recorded ?Confirmed ?Type cholecalciferol (vitamin D3) 50 50 mcg PO DAILY 03/06/25 History mcg (2,000 unit) capsule mtfgwwce-vgy-zmals ac 400 1 tablet PO DAILY 07/26/20 0 03/06/25 History mcg-calcium carb 500 mg-vit K1 20 mcg tablet (Women's 50 Plus Multivitamin) escitalopram oxalate 20 mg tablet 20 mg PO DAILY 02/2703/06/25 History Patient hx anesthesia problems: none Family hx anesthesia problems: none Results Review: All pre-operative results and documents have been reviewed as part of the pre- operative evaluation. [facility], [facility] Past Medical History Medical History (Updated 03/05/25 @ 15:52 by Mike Montoya DO) Anxiety Lateral epicondylitis of right elbow Hypertension High cholesterol De Quervain's disease (radial styloid tenosynovitis) Family History Family History Other Depression Heart disease High cholesterol Hypertension Lung disease Social History Social History (Updated 10/13/21 @ 08:48 by Zee Collins) Smoking status: Former smoker Tobacco type: cigarettes Alcohol intake: current Alcohol use details: Socially Substance use: never Living arrangements: with family Spiritual care concerns: No Anes - Eval Final PreProcedure Day of Procedure 03/06/25 10:34 Patient weight: normal Heart: regular rate and rhythm Lungs: clear to auscultation and normal air movement Airway: Mallampati scale class II Neurological: alert and oriented Last oral intake: >/= 8 hours ASA classification: II Emergent: no Anesthetic plan: proceed Anesthesia type and monitoring: general GIVS and standard monitoring Results Review: All pre-operative results and documents have been reviewed as part of the pre- operative evaluation. Informed Consent: The patient's anesthetic plan and its attendant risks and benefits were discussed with the patient/family/POA. Questions were solicited and answers provided to the satisfaction of the patient/family/POA.
[2025-03-06 10:36] VITALS: BP 117/80; PULSE 83; RESP 18; TEMP 36.2; O2SAT 100; BMI 24.5
[2025-03-06] MEDS: LACTATED RINGERS 1,000 ML 150 ML IV CONT (10:40)
--- NOTE | 2025-03-06 11:22 | PM.IMHP ---
H&P: HPI History of Present Illness Date/Time: 03/06/25 11:22 Chief Complaint: Screening colonoscopy Narrative: This is the patient's first colonoscopy. There are no GI symptoms and there is no family history of colorectal cancer. Review of Systems Review of Systems: All systems reviewed & are unremarkable except as noted in HPI and below [facility] Past Medical History Medical History (Updated 03/06/25 @ 11:23 by Gabo Clements MD) Anxiety Lateral epicondylitis of right elbow Hypertension High cholesterol De Quervain's disease (radial styloid tenosynovitis) Family History Family History Other Depression Heart disease High cholesterol Hypertension Lung disease Social History Social History (Updated 10/13/21 @ 08:48 by Zee Collins) Smoking status: Former smoker Tobacco type: cigarettes Alcohol intake: current Alcohol use details: Socially Substance use: never Living arrangements: with family Spiritual care concerns: No Meds Home Medications and Allergies Home Medications ?Medication ?Instructions ?Recorded ?Confirmed ?Type cholecalciferol (vitamin D3) 50 50 mcg PO DAILY 07/26/20 03/06/25 History mcg (2,000 unit) capsule dxnldieb-tjg-pdfys ac 400 1 tablet PO DAILY 07/26/20 03/06/25 History mcg-calcium carb 500 mg-vit K1 20 mcg tablet (Women's 50 Plus Multivitamin) escitalopram oxalate 20 mg tablet 20 mg PO DAILY 02/27/25 03/06/25 History Allergies Allergy/AdvReac Type Severity Reaction Status Date / Time Penicillins Allergy Mild unsure - Verified 03/06/25 10:35 had as a baby Vital Signs Vital Signs - 24 hr 03/06/25 10:36 Temperature 97.1 F L Pulse Rate 83 Respiratory Rate 18 Blood Pressure 117/80 Pulse Oximetry 100 Oxygen Delivery Room Air Exam Const: General: cooperative and healthy appearing Resp: Effort & Inspection: normal respiratory effort and able to speak in complete sentences Auscultation: clear to auscultation bilaterally Cardio: Rate: regular rate Rhythm: regular rhythm GI: Inspection: normal to inspection GI Palp: No No hepatosplenomegaly present Auscultation: normal bowel sounds Rectal Exam: deferred Skin: General skin exam: normal color Psych: Appearance: grossly normal Mental Status: mental status grossly normal Assessment and Plan Assessment and plan (1) Encounter for screening colonoscopy: Code(s): Z12.11 - Encounter for screening for malignant neoplasm of colon Status: Acute Assessment and Plan: The patient is deemed a good candidate for the procedure. Consent signed. Will proceed.
[2025-03-06 11:41] VITALS: BP 109/62; PULSE 84; RESP 20; O2SAT 100
[2025-03-06 11:51] VITALS: BP 132/86; PULSE 76; RESP 16; O2SAT 100
[2025-03-06 12:01] VITALS: BP 138/87; PULSE 69; RESP 17; O2SAT 100
== END 2025-03-06 12:09 | disposition home or self-care (01) ==
PROVIDERS: PCP Family Medicine; Referring Provider Family Medicine; Visit Provider Internal Medicine Gastroenterology
PROC: 0DJD8ZZ Inspection of Lower Intestinal Tract, Via Natural or Artificial Opening Endoscopic (ICD-10-PCS; CPT 45378; principal; 2025-03-06 11:30)
DX: Z12.11 Encounter for screening for malignant neoplasm of colon (principal); I10 Essential (primary) hypertension; E78.00 Pure hypercholesterolemia, unspecified; M65.4 Radial styloid tenosynovitis [de Quervain]; F41.9 Anxiety disorder, unspecified; Z82.49 Family history of ischemic heart disease and other diseases of the circulatory system; Z83.42 Family history of familial hypercholesterolemia; Z87.891 Personal history of nicotine dependence
CPT/HCPCS: 45378; J2003; J2704; J7120